=== PATIENT | male | born 1965 | race Caucasian/White ===

== ENCOUNTER → 2016-11-19 | Day surgery (SDC) | payer OTHER ==
[~2016-11-19] MED LIST: ACETAMINOPHEN 1000 MG/100 ML VIAL IV ONE; BUPIVACAINE/EPINEPHRINE 0.5% 50 ML VIAL ONE; LACTATED RINGER'S 1000 ML INJ 1,000 ML ONE; MIDAZOLAM HCL 2 MG/2 ML VIAL ONE; PROPOFOL 200 MG/20 ML AMP IV ONE; Z.0.NO CURRENT MEDS
--- NOTE | 2016-11-20 20:02 | MP ---
cc: HERBERT CHIANG DATE OF SURGERY: 11/19/2016. PREOPERATIVE DIAGNOSIS: Multiple lipomas. POSTOPERATIVE DIAGNOSIS: Multiple lipomas. OPERATIVE PROCEDURE PERFORMED: Excision of lipomas: Right forearm; right lateral chest wall; left forearm; left lateral chest wall. SURGEON: Herbert Chiang MD. ANESTHESIA: General. DESCRIPTION OF THE PROCEDURE IN DETAIL: The patient was brought to the operating room and after satisfactory sedation by anesthesia, the right and left forearms and the right and left lateral chest lynch were prepped and draped in the usual sterile fashion. Attention was turned to the right side first and the palpable abnormality was noted in the right forearm. 0.5% Marcaine with epinephrine was used to infiltrate the skin for local anesthesia. A skin incision was made in Eugenie's lines and carried out sharply through the subcutaneous tissue with cautery being used for hemostasis. Incision was deepened to where the lipoma was identified. It was dissected free bluntly with the cautery being used for hemostasis. It was sent for permanent pathology and labelled, "lipoma, right forearm". Gauze was packed into the wound and attention turned to the right chest wall. Again, 0.5% Marcaine with epinephrine was used to infiltrate the skin for local anesthesia. The skin incision was made in Eugenie's lines and carried down sharply to the point where the lipoma was identified. It was dissected free bluntly and with the cautery used for hemostasis. It was passed for permanent pathology marked, "right lateral chest wall lipoma". The area was packed with a sterile gauze. Attention was then turned to the left side where 0.5% Marcaine with epinephrine was used to infiltrate the skin for local anesthesia in the left forearm and the left lateral chest wall. Skin incisions were made in Eugenie's lines and carried down sharply through the subcutaneous tissue with the cautery being used for hemostasis. The incision was deepened to the lipomas which were clearly identified. Both were dissected free bluntly and passed for permanent pathology and labeled separately, "lipoma left forearm" and "lipoma left lateral chest wall". Both areas were packed with gauze after assuring hemostasis with the cautery. Attention was then turned to closing the wounds. The right forearm was closed with interrupted 4-0 PDS subcuticular stitches after which the right lateral chest wall was closed with interrupted 4-0 PDS subcuticular stitches. The left forearm was closed with interrupted 4-0 PDS subcuticular stitches as was the left lateral chest wall. Hemostasis had been assured in all areas prior to closure of the skin. The wounds were then closed with Steri-Strips. The patient was taken from the operating room in satisfactory condition having tolerated procedure without problem. Estimated blood loss was less than 5 mL. The instrument, sponge, needle counts were reported as being correct x2 at the end of the procedure. MD KISHORE Street/JOSE /12:51 PM /7:51 PM
== END | disposition home or self-care (01) ==
LOC: ESDC 10:23
PROVIDERS: ATTEND Surgery
DX: D17.21 Benign lipomatous neoplasm of skin and subcutaneous tissue of right arm (principal); D17.1 Benign lipomatous neoplasm of skin and subcutaneous tissue of trunk; D17.22 Benign lipomatous neoplasm of skin and subcutaneous tissue of left arm
CPT/HCPCS: 00400; 21555; 25071; 25075; 88304; J0131; J2250; J3010; J7120; 88305